=== PATIENT | female | born 1965 | race Caucasian/White ===

== ENCOUNTER 2019-12-22 15:35 | Inpatient (IN) | payer MEDICARE ==
[2019-12-22] MEDS ORDERED: Clindamycin/D5W 900 mg/50 ml Premix Bag ONE (16:28)
[2019-12-22] MEDS ORDERED: Fentanyl 100 MCG/2 ML VIAL ONE (16:28)
[2019-12-22] MEDS ORDERED: Ondansetron PF 4 MG/2 ML Vial ONE (16:28)
[2019-12-22] MEDS ORDERED: Lorazepam 2 MG/ML VIAL ONE (16:29)
[2019-12-22 16:49] LABS: #Basophils 0.1 thou/uL (0.0-0.2); #Eosinphils 0.1 thou/uL (0.0-0.7); #Lymphocytes 1.7 thou/uL (1.20-3.40); #Monocytes 0.2 thou/uL (0.11-0.59); #Neutrophils 3.8 thou/uL (1.40-6.50); %Eosinophils 2.3 % (0.0-10.0); %Lymphocytes 28.4 % (21.0-51.0); %Monocytes 3.7 % (0.0-10.0); %Neutrophils 64.6 % (42.0-75.0); Hemoglobin 13.7 g/dL (12.0-16.0); Mean Corpuscular HGB CONC 32.6 g/dL (32.0-36.0); Mean Corpuscular Hemoglobin 26.2 pg (27.0-31.0); Mean Corpuscular Volume 80.6 fL (78.0-98.0); Mean Platelet Volume 8.8 fL (7.4-10.4); Platelet Count 201 thou/uL (130-400); RBC Distribution Width 13.9 % (11.5-14.5); Red Blood Cell (RBC) Count 5.22 mill/uL (4.20-5.40); White Blood Cell (WBC) Count 5.9 thou/uL (4.8-10.8)
[2019-12-22] MEDS ORDERED: Lidocaine 1% w/Epinephrine 1:100K 20 ML VIAL ONE (16:51)
[2019-12-22 17:13] LABS: ALT (SGPT) Less than 7 U/L (8-55); AST (SGOT) 13 U/L (5-34); Albumin 4.3 g/dL (3.5-5.0); Alkaline Phosphatase 164 U/L (40-110); Anion Gap 15 mmol/L (10-20); BUN (Urea Nitrogen) 12 mg/dL (9.8-20.1); Bilirubin, Total 0.3 mg/dL (0.2-1.2); Calc. Creatinine Clearance 0 mL/min (70-130); Carbon Dioxide 24 mmol/L (22-29); Chloride 99 mmol/L (98-107); Estimated GFR-MDRD 47; Globulin 3.5 g/dL (2.4-3.5); Glucose 443 mg/dL (70-105); Potassium 4.2 mmol/L (3.5-5.1); Protein, Total 7.8 g/dL (6.0-8.3); Sodium 134 mmol/L (136-145)
[2019-12-22] MEDS ORDERED: HYDROcodone/Acetaminophen 5/325 mg Tablet PO PRN (19:27)
[2019-12-22] MEDS ORDERED: Acetaminophen 325 MG TAB PO PRN (19:35)
[2019-12-22] MEDS ORDERED: Senokot S 8.6-50 MG TAB PO PRN (19:35)
[2019-12-22] MEDS ORDERED: Ondansetron PF 4 MG/2 ML Vial IVP PRN (19:35)
[2019-12-22] MEDS ORDERED: Ondansetron ODT 4 MG TAB PO PRN (19:35)
[2019-12-22] MEDS ORDERED: Dextrose 5% in Water 1,000 ML IV PRN (19:37)
[2019-12-22] MEDS ORDERED: Dextrose 50% Abboject 50 ML SYRINGE SLOW IVP PRN (19:37)
[2019-12-22 19:41] LABS: Hemoglobin A1c Greater than 14.0 % (4.0-6.0)
[2019-12-22] MEDS ORDERED: Sodium Chloride 0.9% 1,000 ML IV SCH (19:45)
--- NOTE | 2019-12-22 20:09 | HP ---
PRIMARY CARE PHYSICIAN: Dr. Dc. CHIEF COMPLAINT: Patient was referred by her primary care physician for the perirectal abscess, failed outpatient therapy. HISTORY OF PRESENT ILLNESS: Patient is a 54-year-old a white female with diabetes mellitus, type 2, presented to the emergency room with above complaints. Over the last 1 week, patient noticed an abscess in the perineal area that progressively got worse. She also had significant pain 10/10, worse with movement. She felt feverish without any chills. No vaginal discharge, nausea, vomiting, or diarrhea reported. She was started on doxycycline and Bactrim last week. The patient went for reevaluation today to her primary care physician who referred the patient to the emergency room due to worsening abscess. There was also some drainage, which was bloody over the last 1 to 2 days. PAST MEDICAL HISTORY: 1. Diabetes mellitus, type 2. 2. Hypothyroidism. 3. Bipolar disorder. PAST SURGICAL HISTORY: 1. Carpal tunnel surgery. 2. Hysterectomy. 3. Right knee surgery. ALLERGIES: PATIENT IS ALLERGIC TO DARVOCET. CURRENT HOME MEDICATION: 1. Levothyroxine 175 mcg daily. 2. Metformin twice a day. 3. Doxycycline and Bactrim since one week. The dosages to be confirmed. SOCIAL HISTORY: Patient currently lives at home with her family. No alcohol, tobacco, or drug use reported. FAMILY HISTORY: Mother with breast cancer. Diabetes runs in her family. REVIEW OF SYSTEMS: All other review of systems was reviewed and was found negative. PHYSICAL EXAMINATION: VITAL SIGNS: Temperature 98.7, respirations of 16, pulse of 95, blood pressure of 138/65, and O2 saturation 95% on room air. GENERAL: A 54-year-old female, in no apparent distress. Pain improved after incision and drainage in the emergency room. HEENT: Head, atraumatic and normocephalic. Sclerae anicteric. Moist mucous membranes. No oral lesion. NECK: Supple. No JVD appreciated. No carotid bruit. LUNGS: Clear to auscultation bilaterally. No wheezing, rales, or rhonchi. HEART: S1 and S2 present. Regular rate and rhythm. No rubs or gallops. ABDOMEN: Soft, nontender. Bowel sounds present. EXTREMITIES: No edema or calf tenderness. NEUROLOGIC: Grossly nonfocal. Moves all 4 extremities. PSYCHIATRY: Alert, awake, and oriented x3. SKIN: Warm and dry. LYMPH NODES: No palpable lymph nodes in the neck. PERIPHERAL VASCULAR: Radial pulses palpable bilaterally. MUSCULOSKELETAL: No joint swelling or tenderness. LABORATORY FINDINGS: CBC showed WBC 5.9 with hemoglobin 13.7, hematocrit 42, and platelet 201. Chemistry showed sodium 134, potassium 4.2, chloride 99, bicarb 24, BUN 12, creatinine 1.2, glucose of 443, and alkaline phosphatase 164. Total bilirubin and AST normal range. Telemetry monitoring by my review showed sinus rhythm. IMPRESSION: 1. Perirectal abscess, status post incision and drainage in the emergency room, failed outpatient therapy. 2. Hypothyroidism. 3. Diabetes mellitus, type 2. 4. Bipolar disorder. 5. Hyponatremia. 6. Chronic kidney disease, stage 3. PLAN: Patient will be monitored in the medical floor as observation. General Surgery will be consulted. Consult Wound Care. We will start vancomycin and ceftriaxone. Resume levothyroxine. Hold metformin for now. Pain control. Recheck labs in the a.m. N.p.o. past midnight. Job ID: [id number] MTDD
[2019-12-22 21:44] VITALS: BMI 29.5
[2019-12-22] MEDS ORDERED: cefTRIAXone\\ROCEPHIN 2 GM in Sodium Chloride 0.9% 100 ML IVPB SCH (22:30)
[2019-12-22] MEDS ORDERED: Vancomycin 1.5 GRAM/300 ML BAG 1.5 GM in Premix Bag 1 BAG IVPB SCH (23:00)
[2019-12-22] MEDS: Sodium Chloride 0.9% 1,000 ML IV SCH (23:14)
[2019-12-23] MEDS: Insulin Glargine 10 UNITS in Pre-Filled Syringe 1 EACH SC SCH ×2 (00:08→20:53)
[2019-12-23] MEDS: Morphine 2 MG/ML SYRINGE SLOW IVP PRN ×3 (01:16→18:44)
--- NOTE | 2019-12-23 01:37 | PDOC.EVN ---
Event Note - Event Note Event Note: Notified by RN, patient refusing sliding scale due to fear of needles. Glucose was 393, slight improvement from previous. She had regular diet in ED including brownie. Patient for surgery in AM, metformin on hold. Continue to monitor glucose as ordered. Glucotrol ordered for AM.
[2019-12-23] MEDS: Sodium Chloride 0.9% 1,000 ML IV SCH ×4 (04:00→21:02)
[2019-12-23 06:16] LABS: #Eosinphils 0.1 thou/uL (0.0-0.7); #Lymphocytes 1.7 thou/uL (1.20-3.40); #Monocytes 0.3 thou/uL (0.11-0.59); #Neutrophils 2.3 thou/uL (1.40-6.50); %Basophils 0.5 % (0.0-1.0); %Lymphocytes 37.6 % (21.0-51.0); %Monocytes 6.7 % (0.0-10.0); %Neutrophils 52.1 % (42.0-75.0); Hemoglobin 10.7 g/dL (12.0-16.0); Mean Corpuscular HGB CONC 31.2 g/dL (32.0-36.0); Mean Corpuscular Hemoglobin 25.2 pg (27.0-31.0); Mean Platelet Volume 8.7 fL (7.4-10.4); Platelet Count 162 thou/uL (130-400); RBC Distribution Width 13.8 % (11.5-14.5); Red Blood Cell (RBC) Count 4.22 mill/uL (4.20-5.40); White Blood Cell (WBC) Count 4.5 thou/uL (4.8-10.8)
[2019-12-23] MEDS: Levothyroxine 175 MCG TAB PO SCH (06:26)
[2019-12-23 06:44] LABS: ALT (SGPT) Less than 7 U/L (8-55); AST (SGOT) 10 U/L (5-34); Albumin 3.2 g/dL (3.5-5.0); Alkaline Phosphatase 118 U/L (40-110); Anion Gap 11 mmol/L (10-20); BUN (Urea Nitrogen) 9 mg/dL (9.8-20.1); Bilirubin, Total 0.2 mg/dL (0.2-1.2); Calc. Creatinine Clearance 98 mL/min (70-130); Calcium 8.3 mg/dL (7.8-10.44); Carbon Dioxide 22 mmol/L (22-29); Chloride 106 mmol/L (98-107); Estimated GFR-MDRD 72; Globulin 2.7 g/dL (2.4-3.5); Glucose 357 mg/dL (70-105); Potassium 4.3 mmol/L (3.5-5.1); Protein, Total 5.9 g/dL (6.0-8.3); Sodium 135 mmol/L (136-145)
[2019-12-23] MEDS: Saccharomyces boulardii 250 MG CAP PO SCH (07:45)
[2019-12-23] MEDS: glipiZIDE 5 MG TAB PO SCH ×2 (07:45→17:04)
[2019-12-23] MEDS ORDERED: Insulin Glargine 10 UNITS in Pre-Filled Syringe 1 EACH SC SCH (09:00)
[2019-12-23] MEDS: Insulin Regular 300 UNITS/3 ML VIAL SC PRN ×4 (09:56→21:01)
[2019-12-23] MEDS: Vancomycin HCl 750 MG in Sodium Chloride 0.9% 250 ML 250 ML IVPB SCH ×2 (09:56→21:56)
[2019-12-23] MEDS ORDERED: Fentanyl 100 MCG/2 ML VIAL ONE (10:56)
[2019-12-23] MEDS ORDERED: Lidocaine 1% w/Epinephrine 1:100K 20 ML VIAL ONE (11:06)
[2019-12-23] MEDS ORDERED: Bupivacaine PF 0.5% 30 ML VIAL ONE (11:06)
[2019-12-23] MEDS ORDERED: Lidocaine 2% Jelly 5 ML TUBE ONE (11:06)
[2019-12-23] MEDS ORDERED: Lidocaine 1% PF 5 ML VIAL ONE (11:57)
[2019-12-23] MEDS ORDERED: Glycopyrrolate 0.2 MG/ML 5 ML SYRINGE ONE (11:57)
[2019-12-23] MEDS ORDERED: Rocuronium Bromide 10 MG/ML (10ML VIAL) ONE (11:57)
[2019-12-23] MEDS ORDERED: Ondansetron PF 4 MG/2 ML Vial ONE (11:57)
[2019-12-23] MEDS ORDERED: PROPOFOL 200 MG/20 ML VIAL ONE (11:57)
[2019-12-23] MEDS ORDERED: Dexamethasone 20 MG/5 ML VIAL ONE (11:57)
[2019-12-23] MEDS ORDERED: Promethazine HCl 25 MG/ML VIAL SLOW IVP PRN (12:25)
[2019-12-23] MEDS ORDERED: Morphine Sulfate 2 MG/ML SYRINGE SLOW IVP PRN (12:25)
[2019-12-23] MEDS ORDERED: HYDROmorphone 2 MG/ML VIAL SLOW IVP PRN (12:25)
[2019-12-23] MEDS ORDERED: Ondansetron HCl/PF 4 MG/2 ML Vial IVP PRN (12:25)
[2019-12-23] MEDS ORDERED: PACU-Morphine 4MG/ML VIAL SLOW IVP PRN (12:25)
[2019-12-23] MEDS ORDERED: Promethazine HCl 25 MG/ML VIAL IM PRN (12:25)
[2019-12-23] MEDS ORDERED: Meperidine HCl/PF 25 MG/ML VIAL SLOW IVP PRN (12:25)
--- NOTE | 2019-12-23 13:41 | OP ---
DATE OF PROCEDURE: 12/23/2019 PREOPERATIVE DIAGNOSIS: Right perirectal abscess. POSTOPERATIVE DIAGNOSIS: Right perirectal abscess, likely secondary to an insect bite. PROCEDURE PERFORMED: Incision and drainage of right perirectal abscess. ANESTHESIA: General endotracheal. ESTIMATED BLOOD LOSS: Negligible. COUNTS: Sponge and instrument counts were verified as correct x2. COMPLICATIONS: None apparent at the time of operation. INDICATIONS FOR OPERATION: This is a 54-year-old poorly-controlled diabetic, who presented with a perirectal abscess, which was incised and drained in the emergency department yesterday. The patient was referred to General Surgery due to worsening induration with the abscess associated with significant pain. The patient was brought to the operating room today for incision and drainage. Findings are consistent with necrosis of the skin and subcutaneous fat, associated with the perirectal abscess, likely secondary to insect bite. DESCRIPTION OF PROCEDURE: Informed consent was obtained from the patient. The patient was brought to the operating room and placed in supine position. Following general anesthesia, the patient was placed in the lithotomy position. The wound was sterilely prepped and draped in the usual fashion. Inspection revealed necrosis of the surrounding skin and subcutaneous fat associated with this perirectal abscess. This was circumferentially incised using Metzenbaum scissors, passed off the operative field for microbiology and pathology. The wound bed was then copiously irrigated with saline. Hemostasis was achieved using cautery. Wound was packed with a wet-to-dry sterile gauze. Mesh pants were reapplied. The patient tolerated the procedure without any apparent complication and was returned to recovery room in satisfactory condition. Job ID: [id number]
[2019-12-23] MEDS: cefTRIAXone\\ROCEPHIN 2 GM in Sodium Chloride 0.9% 100 ML IVPB SCH (20:47)
[2019-12-23] MEDS: HYDROcodone/Acetaminophen 5/325 mg Tablet PO PRN (21:08)
--- NOTE | 2019-12-23 23:35 | PDOC.HOSPP ---
- Subjective Encounter Date: 12/23/19 Encounter Time: 16:00 Subjective: Patient seen and examined for Perirectal abscess. No fever. Pain controlled. Refusing Insulin. No new complaints. No overnight events - Objective Vital Signs & Weight: Vital Signs (12 hours) Temp Pulse Resp BP BP Pulse Ox 12/23/19 23:32 97.9 F 73 18 117/79 98 12/23/19 19:13 97.8 F 78 16 124/78 95 12/23/19 17:03 97.8 F 70 18 114/76 93 L 12/23/19 13:00 97.8 F 63 18 117/59 L 93 L Weight Admit Weight 177 lb 4 oz Weight 177 lb 4 oz I&O: 12/22/19 12/23/19 12/24/19 06:59 06:59 06:59 Intake Total 1144 Balance 1144 Result Diagrams: 12/23/19 05:28 12/23/19 05:28 Additional Labs: Accuchecks 12/23/19 12/23/19 12/23/19 20:17 16:48 13:10 POC Glucose 448 H 341 H 266 H 12/23/19 12/23/19 12/23/19 09:34 03:57 00:30 POC Glucose 319 H 428 H 363 H Hospitalist ROS - Review of Systems Respiratory: denies: cough, dry, shortness of breath, hemoptysis, SOB with excertion, pleuritic pain, sputum, wheezing, other Cardiovascular: denies: chest pain, palpitations, orthopnea, paroxysmal noc. dyspnea, edema, light headedness, other - Medication Medications: Active Medications Generic Name Dose Route Start Last Admin Trade Name Freq PRN Reason Stop Dose Admin Hydrocodone Bitart/Acetaminophen 2 tab 12/22/19 19:35 12/23/19 21:08 [place] 5/325 PO 2 tab Q4H PRN Administration Severe Pain (7-10) Glipizide 5 mg 12/23/19 07:30 12/23/19 17:04 Glucotrol PO 5 mg BID-AC PLACIDO Administration Ceftriaxone Sodium 2 gm/ 100 mls @ 200 mls/hr 12/23/19 21:00 12/23/19 20:47 Sodium Chloride IVPB 100 mls Q24HR PLACIDO Administration Sodium Chloride 1,000 mls @ 125 mls/hr 12/22/19 19:48 12/23/19 21:02 Normal Saline 0.9% IV Not Given .Q8H PLACIDO Insulin Glargine 10 units/ 0.1 mls @ 0 mls/hr 12/22/19 21:00 12/23/19 20:53 Miscellaneous Medication SC 0.1 mls HS PLACIDO Administration Insulin Glargine 10 units/ 0.1 mls @ 0 mls/hr 12/23/19 09:00 12/23/19 06:26 Miscellaneous Medication SC 0.1 mls QAM PLACIDO Administration Vancomycin HCl 750 mg/ Sodium 250 mls @ 250 mls/hr 12/23/19 10:00 12/23/19 21 :56 Chloride IVPB 250 mls 1000,2200 PLACIDO Administration Insulin Human Regular 0 units 12/22/19 19:37 12/23/19 17:04 Humulin R SC 8 unit .MODERATE SLIDING SC PRN Administration Moderate Correctional Scale Insulin Human Regular 0 units 12/22/19 19:37 12/23/19 21:01 Humulin R SC 5 unit .BEDTIME SLIDING SC PRN Administration Bedtime Correctional Scale Levothyroxine Sodium 175 mcg 12/23/19 06:00 12/23/19 06:26 Synthroid PO 175 mcg 0600 PLACIDO Administration Morphine Sulfate 2 mg 12/22/19 19:27 12/23/19 18:44 Morphine SLOW IVP 12/24/19 19:28 2 mg Q4H PRN Administration Pain Saccharomyces Boulardii 250 mg 12/23/19 09:00 12/23/19 07:45 Florastor PO Not Given DAILY PLACIDO - Exam General Appearance: NAD Neck: no JVD Heart: RRR, no gallops, no rubs, normal peripheral pulses Respiratory: no wheezes, no rales, no ronchi Gastrointestinal: soft, non-tender, non-distended, normal bowel sounds Extremities: no cyanosis, no clubbing Neurological: no new deficit Psychiatric: normal affect, A&O x 3 Hosp A/P - Plan DVT proph w/SCDs Perirectal abscess s/p I&D Hypothyroidism. Diabetes mellitus, type 2. Bipolar disorder. Hyponatremia. CKD 3. PLAN: Cont IV Vancomycin/Ceftriaxone Monitor Vancomycin level Cont Levothyroxine. Start Lantus Cont Glipizide Await cultures Surg input appreciated Microbiology 12/23/19 12:00 Perirectal - Abscess Bacterial Culture - Preliminary 12/23/19 12:00 Perirectal - Abscess Streptococcus agalactiae Gp. B Laboratory Tests 12/22/19 16:37 Hemoglobin A1c Greater than 14.0 H
[2019-12-23] MEDS ORDERED: Insulin Glargine 15 UNITS in Pre-Filled Syringe 1 EACH SC SCH (23:59)
--- NOTE | 2019-12-24 00:13 | PRG ---
DATE OF SERVICE: 12/23/2019 SUBJECTIVE: The patient is currently on the surgical floor. She is status post incision and drainage of a right perirectal abscess today. She reports that her pain is controlled. She is tolerating a diet. PHYSICAL EXAMINATION: VITAL SIGNS: The patient is afebrile. Vital signs are stable. GENERAL: She is resting comfortably in bed. She appears in no distress. Nurses report that her dressing has not been changed yet. Plan was for it to be changed tomorrow and it is currently a wet-to-dry dressing. ASSESSMENT: Status post irrigation and debridement of perirectal abscess. PLAN: Will be to continue supportive care, wound care, and antibiotics per primary team. Job ID: [id number]
[2019-12-24] MEDS: Morphine 2 MG/ML SYRINGE SLOW IVP PRN ×2 (03:52→10:24)
[2019-12-24] MEDS: Sodium Chloride 0.9% 1,000 ML IV SCH ×3 (03:52→21:58)
[2019-12-24] MEDS: Levothyroxine 175 MCG TAB PO SCH (05:29)
[2019-12-24] MEDS: Insulin Regular 300 UNITS/3 ML VIAL SC PRN ×3 (05:29→21:44)
[2019-12-24] MEDS: Saccharomyces boulardii 250 MG CAP PO SCH (09:23)
[2019-12-24] MEDS: glipiZIDE 5 MG TAB PO SCH ×2 (09:23→16:58)
[2019-12-24] MEDS: Polyethylene Glycol 3350 17 GM Packet PO SCH (09:24)
[2019-12-24] MEDS: Vancomycin HCl 750 MG in Sodium Chloride 0.9% 250 ML 250 ML IVPB SCH (09:25)
[2019-12-24] MEDS: Insulin Glargine 20 UNITS in Pre-Filled Syringe 1 EACH SC SCH ×2 (09:28→21:43)
[2019-12-24] MEDS: HYDROcodone/Acetaminophen 5/325 mg Tablet PO PRN ×2 (11:31→16:55)
[2019-12-24 21:22] LABS: Vancomycin, Trough 8.4 ug/mL
[2019-12-24] MEDS ORDERED: Insulin Regular 300 UNITS/3 ML VIAL SC PRN (21:35)
--- NOTE | 2019-12-24 21:38 | PDOC.HOSPP ---
- Subjective Encounter Date: 12/24/19 Encounter Time: 16:30 Subjective: Patient seen and examined for Perirectal abscess. Pain control. No new complaints. No overnight events - Objective Vital Signs & Weight: Vital Signs (12 hours) Temp Pulse Resp BP Pulse Ox 12/24/19 21:01 97.8 F 70 20 126/80 97 12/24/19 16:55 97.8 F 69 18 130/80 97 12/24/19 11:52 97.5 F L 74 18 129/79 98 Weight Admit Weight 177 lb 4 oz Weight 177 lb 4 oz I&O: 12/23/19 12/24/19 12/25/19 06:59 06:59 06:59 Intake Total 3244 Balance 3244 Result Diagrams: 12/23/19 05:28 12/23/19 05:28 Additional Labs: Accuchecks 12/24/19 12/24/19 12/24/19 21:01 16:43 11:40 POC Glucose 160 H 168 H 246 H 12/24/19 12/23/19 03:35 23:40 POC Glucose 264 H 326 H Hospitalist ROS - Review of Systems Cardiovascular: denies: chest pain, palpitations, orthopnea, paroxysmal noc. dyspnea, edema, light headedness, other Gastrointestinal: denies: nausea, vomiting, abdominal pain, diarrhea, constipation, melena, hematochezia, other - Medication Medications: Active Medications Generic Name Dose Route Start Last Admin Trade Name Freq PRN Reason Stop Dose Admin Hydrocodone Bitart/Acetaminophen 2 tab 12/22/19 19:35 12/24/19 16:55 [place] 5/325 PO 2 tab Q4H PRN Administration Severe Pain (7-10) Glipizide 5 mg 12/23/19 07:30 12/24/19 16:58 Glucotrol PO 5 mg BID-AC PLACIDO Administration Ceftriaxone Sodium 2 gm/ 100 mls @ 200 mls/hr 12/23/19 21:00 12/23/19 20:47 Sodium Chloride IVPB 100 mls Q24HR PLACIDO Administration Insulin Glargine 20 units/ 0.2 mls @ 0 mls/hr 12/24/19 09:00 12/24/19 09:28 Miscellaneous Medication SC 0.2 mls BID PLACIDO Administration Insulin Human Regular 0 units 12/22/19 19:37 12/23/19 21:01 Humulin R SC 5 unit .BEDTIME SLIDING SC PRN Administration Bedtime Correctional Scale Levothyroxine Sodium 175 mcg 12/23/19 06:00 12/24/19 05:29 Synthroid PO 175 mcg 0600 PLACIDO Administration Polyethylene Glycol 17 gm 12/24/19 09:00 12/24/19 09:24 Miralax PO Not Given DAILY PLACIDO Saccharomyces Boulardii 250 mg 12/23/19 09:00 12/24/19 09:23 Florastor PO 250 mg DAILY PLACIDO Administration - Exam General Appearance: NAD Heart: RRR, no gallops Respiratory: CTAB, no rales Gastrointestinal: non-tender, non-distended, normal bowel sounds Extremities: no cyanosis Hosp A/P - Plan DVT proph w/SCDs Perirectal abscess s/p I&D Hypothyroidism. Diabetes mellitus, type 2 - uncontrolled Bipolar disorder. Hyponatremia. BLOSSOM on CKD 2. PLAN: Cont IV Atbx - Vancomycin/Ceftriaxone Monitor Vancomycin level Increase Lantus dose Cont sliding scale Cont Glipizide Await cultures Cont wound care DC in 24 hr if stable Microbiology 12/23/19 12:00 Perirectal - Abscess Bacterial Culture - Preliminary 12/23/19 12:00 Perirectal - Abscess Streptococcus agalactiae Gp. B
[2019-12-24] MEDS: cefTRIAXone\\ROCEPHIN 2 GM in Sodium Chloride 0.9% 100 ML IVPB SCH (21:43)
[2019-12-24] MEDS: Vancomycin HCl 1.25 GM in Sodium Chloride 0.9% 250 ML 250 ML IVPB SCH (22:47)
[2019-12-25] MEDS: Levothyroxine 175 MCG TAB PO SCH (05:24)
[2019-12-25 08:05] VITALS: BP 132/74; TEMP 97.5
[2019-12-25] MEDS ORDERED: Enoxaparin Sodium 40 MG/0.4 ML SYRINGE SC SCH (09:00)
[2019-12-25] MEDS: HYDROcodone/Acetaminophen 5/325 mg Tablet PO PRN (09:15)
[2019-12-25] MEDS: glipiZIDE 5 MG TAB PO SCH (09:17)
[2019-12-25] MEDS: Saccharomyces boulardii 250 MG CAP PO SCH (09:17)
[2019-12-25] MEDS: Polyethylene Glycol 3350 17 GM Packet PO SCH (09:17)
[2019-12-25] MEDS: Insulin Glargine 20 UNITS in Pre-Filled Syringe 1 EACH SC SCH (09:18)
[2019-12-25] MEDS: Vancomycin HCl 1.25 GM in Sodium Chloride 0.9% 250 ML 250 ML IVPB SCH (11:22)
--- NOTE | 2019-12-25 13:50 | DIS ---
DATE OF ADMISSION: 12/22/2019 DATE OF DISCHARGE: 12/25/2019 PRIMARY CARE PROVIDER: Giancarlo Dc. DISPOSITION: Discharged to home. FINAL DIAGNOSES: 1. Perirectal abscess. 2. Type 2 diabetes mellitus, uncontrolled. 3. Hypothyroidism. 4. B12 deficiency. ALLERGIES: DARVON. CODE STATUS: Full. PENDING AT TIME OF DISCHARGE: Nothing. DIET: Diabetic. MEDICINES: At discharge; 1. Cephalexin 250 mg p.o. q.i.d. for 7 days. 2. Insulin glargine 20 units subcu twice a day. 3. Metformin 500 mg p.o. q.i.d. 4. Levothyroxine 175 mcg a day. HOSPITAL COURSE: The patient was admitted to the Hospitalist Service through [facility] for perirectal abscess, failed outpatient therapy. Dr. Fareed Schreiber, was consulted. The patient went to the operating room on 12/23/2019. Incision and drainage of right perirectal abscess were done. Past specimen was read out as soft tissue abscess. Initial laboratory; white count 5.9, hemoglobin 13.7, and platelet count 201,000. Comprehensive metabolic profile; blood sugar 443, creatinine 1.2, and sodium 134. Her hemoglobin A1c was greater than 14. Insulin glargine was added. Accu-Chek sliding scale were continued. Her creatinine came down to normal 0.82. Her abscess culture grew Streptococcus agalactiae. She has done well during her hospital stay. She is to be seen in followup by Dr. Dc in 3 days. She has received instruction on insulin injections. She has received instruction on wound care and sitz baths. All questions were answered. Prescriptions were written. Job ID: [id number]
--- NOTE | 2019-12-28 06:25 | PQF ---
YANET MIMS, [place] Ethan STEVEN [id number] -A- [id number] CLINICAL DOCUMENTATION CLARIFICATION FORM: POST DISCHARGE Addendum to original discharge summary date: ____ Late entry note date: __ DATE:12/28/2019 ATTN: Dr Boo, [place] Please exercise your independent, professional judgment in responding to the clarification form. Clinical indicators are provided on the bottom of this form for your review In your clinical opinion based on clinical findings below, can you please further specify Perirectal abscess if: Please check appropriate box(s): [ ] Subcutaneous perineal abscess [ ] Rectal Abscess [ x ] Other diagnosis request info from surgeon Also please further clarify the etilogy of Abscess if due to: Please check appropriate box(s): [ ] DM type2 [ ] Insect Bite [ ] Other diagnosis For continuity of documentation, please document condition throughout progress notes and discharge summary. Thank You. CLINICAL INDICATORS - SIGNS / SYMPTOMS / LABS Laboratory 12/21 Poc Glucose 419; 363; 428; 319; 266; 341; 448 Microbiology 12/22 Perirectal abscess positive with Strep Group B ED Notes p3 12/21 large right perirectal abscess H&P p1 12/21 Dr Thomas Over the last 1 week, pt noticed an abscess in the perineal area that progressively got worse. She also had significant pain 07/29. Operative report p1 12/22 Dr Schreiber Right perirectal abscess, likely secondary to an insect bite Operative report p1 12/22 Dr Schreiber Inspection revealed necrosis of the surrounding skin and subcutaneous fat associated with perirectal abscess Pathology report p1 12/22 specimen consists of an irregular ozuna soft tissue measuring 2.2 x 1.8 x1.5 cm greatest dimensions RISK FACTORS H&P p1 03/ DM type 2, poorly controlled H&P p1 12/21 Hypothyroidism H&P p2 12/21 Perirectal abscess, failed outpatient therapy H&P p3 12/21 Hyponatremia H&P p3 12/21 CKD 3 TREATMENTS: DEC 20 [place] 5/325 1tab po DEC 20 IV Ceftriaxone Sodium 2gm DEC 20 Insulin 10units subq DEC 20 IV Morphine 4mg DEC 20 IVF NS 1L DEC 20 IV Morphine 1.5 DEC 20 Glucotrol 5mg po I&D 12/21 done in ED I&D 12/[address] Candie ABURTO 12/24 Wound culture (This form is maintained as a part of the permanent medical record) 2014 [employer], [employer]. All Rights Reserved [email or web address]
--- NOTE | 2019-12-28 19:38 | PQF ---
YANET MIMS VINCENT MD [id number] [id number] CLINICAL DOCUMENTATION CLARIFICATION FORM: POST DISCHARGE Addendum to original discharge summary date: ____ Late entry note date: __ DATE:12/28/2019 ATTN: Fareed Mtz Please exercise your independent, professional judgment in responding to the clarification form. Clinical indicators are provided on the bottom of this form for your review In your clinical opinion based on clinical findings below, can you please further specify Perirectal abscess if: Please check appropriate box(s): [ x ] Subcutaneous perineal abscess [ ] Rectal Abscess [ ] Other diagnosis Also please further clarify the etiology of Abscess if due to: Please check appropriate box(s): [ x ] DM type2 [ x ] Insect Bite [ ] Other diagnosis For continuity of documentation, please document condition throughout progress notes and discharge summary. Thank You. CLINICAL INDICATORS - SIGNS / SYMPTOMS / LABS Laboratory 12/21 Poc Glucose 419; 363; 428; 319; 266; 341; 448 Microbiology 12/22 Perirectal abscess positive with Strep Group B ED Notes p3 12/21 large right perirectal abscess H&P p1 12/21 Dr Thomas Over the last 1 week, pt noticed an abscess in the perineal area that progressively got worse. She also had significant pain 07/29. Operative report p1 12/22 Dr Schreiber Right perirectal abscess, likely secondary to an insect bite Operative report p1 12/22 Dr Schreiber Inspection revealed necrosis of the surrounding skin and subcutaneous fat associated with perirectal abscess Pathology report p1 12/22 specimen consists of an irregular ozuna soft tissue measuring 2.2 x 1.8 x1.5 cm greatest dimensions RISK FACTORS H&P p1 03/ DM type 2, poorly controlled H&P p1 12/21 Hypothyroidism H&P p2 12/21 Perirectal abscess, failed outpatient therapy H&P p3 12/21 Hyponatremia H&P p3 12/21 CKD 3 TREATMENTS: DEC 20 [place] 5/325 1tab po DEC 20 IV Ceftriaxone Sodium 2gm DEC 20 Insulin 10units subq DEC 20 IV Morphine 4mg DEC 20 IVF NS 1L DEC 20 IV Morphine 1.5 DEC 20 Glucotrol 5mg po I&D 12/21 done in ED I&D 12/[address] Candie ABURTO 12/24 Wound culture (This form is maintained as a part of the permanent medical record) 2014 [employer], [employer]. All Rights Reserved [email or web address]
== END 2019-12-25 14:40 | disposition home or self-care (01) | DRG 580 ==
LOC: ERS 15:35 → OBSVTOIN 17:32 → T4-A 17:32
PROVIDERS: ADMIT Internal Medicine; ATTEND Internal Medicine
PROC: 0H99XZZ Drainage of Perineum Skin, External Approach (ICD-10-PCS; 2019-12-22)
PROC: 0J9B0ZZ Drainage of Perineum Subcutaneous Tissue and Fascia, Open Approach (ICD-10-PCS; principal; 2019-12-23)
DX: L02.215 Cutaneous abscess of perineum (principal); E87.1 Hypo-osmolality and hyponatremia; E11.628 Type 2 diabetes mellitus with other skin complications; E11.65 Type 2 diabetes mellitus with hyperglycemia; E03.9 Hypothyroidism, unspecified; E53.8 Deficiency of other specified B group vitamins; F31.9 Bipolar disorder, unspecified; E11.22 Type 2 diabetes mellitus with diabetic chronic kidney disease; N18.3 Chronic kidney disease, stage 3 (moderate); B95.4 Other streptococcus as the cause of diseases classified elsewhere; S30.864A Insect bite (nonvenomous) of vagina and vulva, initial encounter; W57.XXXA Bitten or stung by nonvenomous insect and other nonvenomous arthropods, initial encounter; Z88.6 Allergy status to analgesic agent; Z79.890 Hormone replacement therapy; Z90.710 Acquired absence of both cervix and uterus; Z79.84 Long term (current) use of oral hypoglycemic drugs
CPT/HCPCS: 36415; 36416; 46040; 80053; 80202; 83036; 85025; 87070; 87076; 87077; 87205; 88304; 96361; 96365; 96375; J0696; J1100; J1815; J2001; J2060; J2270; J2405; J2704; J3010; J3370; J3490; J7050; S0020

== ENCOUNTER 2022-09-22 02:08 | Inpatient (IN) | payer MEDICARE, OTHER ==
[2022-09-22 05:22] VITALS: BMI 28.8
[2022-09-22] MEDS ORDERED: Dextrose 50% Abboject 50 ML SYRINGE SLOW IVP PRN (06:03)
[2022-09-22] MEDS ORDERED: Ondansetron PF 4 MG/2 ML Vial IVP PRN (06:03)
[2022-09-22] MEDS ORDERED: Ondansetron ODT 4 MG TAB PO PRN (06:03)
[2022-09-22] MEDS ORDERED: Acetaminophen 650 MG Suppository PR PRN (06:03)
[2022-09-22] MEDS ORDERED: HumaLOG 300 UNITS/3 ML VIAL SC PRN (06:03)
[2022-09-22] MEDS ORDERED: Dextrose 5% in Water 1,000 ML IV PRN (06:03)
[2022-09-22] MEDS ORDERED: Piperacillin/Tazobactam 3.375 GM in Sodium Chloride 0.9% 100 ML IVPB SCH ×2 (06:15→06:30)
[2022-09-22] MEDS ORDERED: Sodium Chloride 0.9% 1,000 ML IV SCH (06:30)
[2022-09-22] MEDS: HumaLOG 300 UNITS/3 ML VIAL SC PRN ×2 (06:34→17:06)
[2022-09-22 07:02] LABS: SARS-CoV-2 NAA Rapid Test Not Detected (NotDetected)
[2022-09-22] MEDS: Acetaminophen 325 MG TAB PO PRN ×2 (07:04→12:04)
[2022-09-22] MEDS ORDERED: Morphine 4 MG/ML VIAL SLOW IVP PRN (07:11)
[2022-09-22] MEDS ORDERED: ALPRAZolam 0.25 MG TAB PO PRN (08:19)
[2022-09-22] MEDS ORDERED: FLU VACC QS2022-23(6MOS UP)/PF 60 MCG/0.5 ML SYRINGE IM ONE (09:00)
[2022-09-22 11:46] LABS: #Lymphocytes 0.5 thou/uL (1.20-3.40); #Monocytes 0.3 thou/uL (0.11-0.59); #Neutrophils 2.1 thou/uL (1.40-6.50); %Basophils 0.9 % (0.0-1.0); %Eosinophils 1.4 % (0.0-10.0); %Lymphocytes 15.6 % (21.0-51.0); %Monocytes 10.7 % (0.0-10.0); %Neutrophils 71.4 % (42.0-75.0); Hemoglobin 10.4 g/dL (12.0-16.0); Mean Corpuscular HGB CONC 30.3 g/dL (32.0-36.0); Mean Corpuscular Hemoglobin 23.2 pg (27.0-31.0); Mean Corpuscular Volume 76.7 fl (78.0-98.0); RBC Distribution Width 16.9 % (11.5-14.5); Red Blood Cell (RBC) Count 4.49 mill/uL (4.20-5.40)
[2022-09-22] MEDS: Piperacillin/Tazobactam 3.375 GM in Sodium Chloride 0.9% 100 ML IVPB SCH ×2 (11:57→19:49)
[2022-09-22 12:01] LABS: ALT (SGPT) 60 U/L (8-55); AST (SGOT) 68 U/L (5-34); Albumin 3.7 g/dL (3.5-5.0); Alkaline Phosphatase 268 U/L (40-110); Anion Gap 13 mmol/L (10-20); BUN (Urea Nitrogen) 7 mg/dL (9.8-20.1); Bilirubin, Direct 2.7 mg/dL (0.1-0.3); Bilirubin, Total 3.9 mg/dL (0.2-1.2); Calc. Creatinine Clearance 100 mL/min (70-130); Carbon Dioxide 22 mmol/L (22-29); Chloride 106 mmol/L (98-107); Estimated GFR 91; Globulin 2.9 g/dL (2.4-3.5); Glucose 230 mg/dL (70-105); Potassium 3.6 mmol/L (3.5-5.1); Protein, Total 6.6 g/dL (6.0-8.3); Sodium 137 mmol/L (136-145)
[2022-09-22 12:07] LABS: Hypochromia SLIGHT = 6-15 cells (100X) (0-5/hpf); Large Platelets SLIGHT; MDiff Complete? YES; Microcytosis SLIGHT = 6-15 cells (100X) (0-5/hpf); Platelet Count 91 10x3/uL (130-400); Platelet Morphology Comment Appears Decreased; Tear Drops SLIGHT = 2-5 cells (100X) (0-1/hpf)
[2022-09-22 14:05] LABS: Hemoglobin A1c 10.2 % (4.0-6.0)
[2022-09-22] MEDS: Lactated Ringer's 1,000 ML IV SCH (17:03)
[2022-09-22] MEDS: Insulin Glargine 30 UNITS/0.3 ML VIAL SC SCH (20:26)
[2022-09-22] MEDS ORDERED: Enoxaparin Sodium 40 MG/0.4 ML SYRINGE SC SCH (21:00)
[2022-09-23] MEDS: Lactated Ringer's 1,000 ML IV SCH ×4 (04:01→23:34)
[2022-09-23] MEDS: Piperacillin/Tazobactam 3.375 GM in Sodium Chloride 0.9% 100 ML IVPB SCH ×3 (04:01→20:21)
[2022-09-23] MEDS: Acetaminophen 325 MG TAB PO PRN (04:03)
[2022-09-23 06:54] LABS: PTT 32.3 sec (22.9-36.1)
[2022-09-23 07:12] LABS: ALT (SGPT) 45 U/L (8-55); AST (SGOT) 44 U/L (5-34); Albumin 3.5 g/dL (3.5-5.0); Alkaline Phosphatase 265 U/L (40-110); Anion Gap 12 mmol/L (10-20); BUN (Urea Nitrogen) 6 mg/dL (9.8-20.1); Bilirubin, Total 2.3 mg/dL (0.2-1.2); Calc. Creatinine Clearance 100 mL/min (70-130); Calcium 8.7 mg/dL (7.8-10.44); Carbon Dioxide 24 mmol/L (22-29); Chloride 106 mmol/L (98-107); Estimated GFR 91; Globulin 2.8 g/dL (2.4-3.5); Glucose 172 mg/dL (70-105); Iron 21 ug/dL (50-170); Iron Binding Capacity, Total 298 mcg/dL (265-497); Potassium 3.3 mmol/L (3.5-5.1); Protein, Total 6.3 g/dL (6.0-8.3); Sodium 139 mmol/L (136-145)
[2022-09-23] MEDS ORDERED: Bupivacaine/Epinephrine 0.25% 30 ML VIAL ONE ×2 (08:41→08:55)
[2022-09-23] MEDS ORDERED: Iopamidol 30 ML ONE (08:41)
[2022-09-23] MEDS ORDERED: Ioversol 68 % 50 ML VIAL ONE (08:55)
[2022-09-23] MEDS ORDERED: Dexmedetomidine 200 MCG/2 ML VIAL ONE (09:02)
[2022-09-23] MEDS ORDERED: fentaNYL PF 100 MCG/2 ML SYRINGE ONE (09:02)
[2022-09-23] MEDS ORDERED: Ondansetron PF 4 MG/2 ML Vial ONE (09:14)
[2022-09-23] MEDS ORDERED: Dexamethasone 20 MG/5 ML VIAL ONE (09:14)
[2022-09-23] MEDS ORDERED: Rocuronium Bromide 10 MG/ML (10ML VIAL) ONE (09:14)
[2022-09-23] MEDS ORDERED: NEOSTIGMINE 3 MG/3 ML SYR 3 MG/3 ML SYRINGE ONE (09:14)
[2022-09-23] MEDS ORDERED: PROPOFOL 200 MG/20 ML VIAL ONE (09:14)
[2022-09-23] MEDS ORDERED: Promethazine HCl 25 MG/ML VIAL IM PRN (09:45)
[2022-09-23] MEDS ORDERED: Promethazine HCl 25 MG/ML VIAL IVPB PRN (09:45)
[2022-09-23] MEDS ORDERED: Ondansetron HCl/PF 4 MG/2 ML Vial IVP PRN (09:45)
[2022-09-23] MEDS ORDERED: Piperacillin/Tazobactam 3.375 GM VIAL ONE (09:46)
[2022-09-23] MEDS ORDERED: Promethazine HCl 25 MG/ML VIAL ONE (11:27)
[2022-09-23] MEDS ORDERED: traMADol HCl 50 MG TAB PO PRN ×3 (11:47→12:42)
[2022-09-23] MEDS ORDERED: oxyCODONE 5 MG TAB PO PRN ×2 (11:48→11:49)
[2022-09-23] MEDS ORDERED: [UNRECOGNIZED DRUG - REMARK] FS PRN (12:41)
[2022-09-23] MEDS ORDERED: Electrolyte Replacement Protocol 1 EACH FS SCH (12:45)
[2022-09-23] MEDS ORDERED: Electrolyte Replacement Protocol FS PRN (12:45)
[2022-09-23] MEDS: oxyCODONE 5 MG TAB PO PRN ×2 (15:26→22:11)
[2022-09-23] MEDS: HumaLOG 300 UNITS/3 ML VIAL SC PRN (18:14)
[2022-09-23] MEDS: Insulin Glargine 30 UNITS/0.3 ML VIAL SC SCH (20:21)
[2022-09-24] MEDS: oxyCODONE 5 MG TAB PO PRN ×2 (02:39→09:06)
[2022-09-24] MEDS: Piperacillin/Tazobactam 3.375 GM in Sodium Chloride 0.9% 100 ML IVPB SCH ×2 (03:00→11:34)
[2022-09-24 04:38] VITALS: TEMP 98.5
[2022-09-24 04:44] LABS: #Lymphocytes 0.7 thou/uL (1.20-3.40); #Monocytes 0.5 thou/uL (0.11-0.59); #Neutrophils 3.1 thou/uL (1.40-6.50); %Basophils 0.1 % (0.0-1.0); %Eosinophils 0.3 % (0.0-10.0); %Lymphocytes 16.9 % (21.0-51.0); %Monocytes 12.1 % (0.0-10.0); %Neutrophils 70.5 % (42.0-75.0); Hemoglobin 10.9 g/dL (12.0-16.0); Mean Corpuscular HGB CONC 30.8 g/dL (32.0-36.0); Mean Corpuscular Hemoglobin 23.5 pg (27.0-31.0); Mean Corpuscular Volume 76.2 fl (78.0-98.0); Mean Platelet Volume 11.5 fL (7.4-10.4); Platelet Count 120 10x3/uL (130-400); RBC Distribution Width 17.4 % (11.5-14.5); Red Blood Cell (RBC) Count 4.63 mill/uL (4.20-5.40); White Blood Cell (WBC) Count 4.3 10x3/uL (4.8-10.8)
[2022-09-24 04:59] LABS: ALT (SGPT) 40 U/L (8-55); AST (SGOT) 47 U/L (5-34); Albumin 3.7 g/dL (3.5-5.0); Alkaline Phosphatase 292 U/L (40-110); Anion Gap 14 mmol/L (10-20); BUN (Urea Nitrogen) 5 mg/dL (9.8-20.1); Bilirubin, Total 2.5 mg/dL (0.2-1.2); Calc. Creatinine Clearance 87 mL/min (70-130); Calcium 9.1 mg/dL (7.8-10.44); Carbon Dioxide 25 mmol/L (22-29); Chloride 102 mmol/L (98-107); Estimated GFR 77; Globulin 2.9 g/dL (2.4-3.5); Glucose 236 mg/dL (70-105); Protein, Total 6.6 g/dL (6.0-8.3); Sodium 137 mmol/L (136-145)
[2022-09-24] MEDS: HumaLOG 300 UNITS/3 ML VIAL SC PRN ×2 (05:59→11:34)
[2022-09-24] MEDS ORDERED: Enoxaparin Sodium 40 MG/0.4 ML SYRINGE SC SCH (09:00)
[2022-09-24] MEDS: Lactated Ringer's 1,000 ML IV SCH (09:02)
[2022-09-24 12:40] LABS: ANA Symphony (Qualitative) Negative (Negative); ANA Symphony (Quantitative) 0.3 Ratio (< 0.7 Negative); EliA Vaculitis New Method **** NEW METHOD ****; Mitochondrial Ab 0.7 U/mL (<4 Negative); dsDNA IgG Antibody 0.8 IU/mL (<10 Negative)
[2022-09-24 12:56] VITALS: BP 142/82
[2022-09-24 14:38] LABS: Alpha-1-Antitrypsin 187 mg/dL (101-187)
[2022-09-25 12:13] LABS: Smooth Muscle Total ABS 15 Units (0-19)
== END 2022-09-24 14:35 | disposition home or self-care (01) | DRG 418 ==
LOC: SURG B 04:09
PROVIDERS: ADMIT Family Medicine; ATTEND Family Medicine
PROC: 0FT44ZZ Resection of Gallbladder, Percutaneous Endoscopic Approach (ICD-10-PCS; principal; 2022-09-23)
PROC: 0FB04ZX Excision of Liver, Percutaneous Endoscopic Approach, Diagnostic (ICD-10-PCS; 2022-09-23)
PROC: BF532Z0 Other Imaging of Gallbladder and Bile Ducts using Fluorescing Agent, Intraoperative (ICD-10-PCS; 2022-09-23)
DX: K80.00 Calculus of gallbladder with acute cholecystitis without obstruction (principal); D61.818 Other pancytopenia; Z20.822 Contact with and (suspected) exposure to COVID-19; K74.60 Unspecified cirrhosis of liver; G89.29 Other chronic pain; M54.2 Cervicalgia; M54.9 Dorsalgia, unspecified; E03.9 Hypothyroidism, unspecified; E80.6 Other disorders of bilirubin metabolism; D50.9 Iron deficiency anemia, unspecified; I50.9 Heart failure, unspecified; E11.65 Type 2 diabetes mellitus with hyperglycemia; R16.1 Splenomegaly, not elsewhere classified; Z28.21 Immunization not carried out because of patient refusal; Z88.8 Allergy status to other drugs, medicaments and biological substances; Z79.899 Other long term (current) drug therapy; Z79.890 Hormone replacement therapy; Z79.84 Long term (current) use of oral hypoglycemic drugs; Z79.4 Long term (current) use of insulin
CPT/HCPCS: 36415; 36416; 47532; 74181; 76705; 80053; 81256; 82103; 82105; 82247; 82728; 83036; 83516; 83540; 83550; 83690; 85025; 85610; 85730; 86015; 86038; 86225; 86850; 86900; 86901; 88304; 88307; 88313; C1713; C1889; J1100; J1610; J1650; J1815; J2270; J2405; J2543; J2550; J2704; J3490; J7050; J7120; J7643; Q9967; U0002

== ENCOUNTER 2023-09-22 21:48 | Observation (INO) | payer OTHER ==
[2023-09-22] MEDS ORDERED: Lidocaine 1% PF 5 ML VIAL ONE (22:46)
[2023-09-23] MEDS ORDERED: Sodium Chloride 0.9% 100 ML ONE (00:34)
[2023-09-23] MEDS ORDERED: cefTRIAXone (ROCEPHIN) 2 GM VIAL ONE (00:34)
[2023-09-23] MEDS ORDERED: Ondansetron PF 4 MG/2 ML Vial IVP PRN (01:01)
[2023-09-23] MEDS ORDERED: Glucagon 1 MG/ML KIT IM PRN (01:01)
[2023-09-23] MEDS ORDERED: Dextrose 5% in Water 1,000 ML IV PRN (01:01)
[2023-09-23] MEDS ORDERED: Ondansetron ODT 4 MG TAB PO PRN (01:01)
[2023-09-23] MEDS ORDERED: Acetaminophen 325 MG TAB PO PRN (01:01)
[2023-09-23] MEDS ORDERED: Dextrose 50% Abboject 50 ML SYRINGE SLOW IVP PRN (01:01)
[2023-09-23] MEDS ORDERED: HumaLOG 300 UNITS/3 ML VIAL SC PRN (01:01)
[2023-09-23 01:38] VITALS: BMI 29.0
[2023-09-23] MEDS ORDERED: Acetaminophen 325 MG TAB ONE (03:36)
[2023-09-23 03:44] LABS: #Eosinphils 0.1 thou/uL (0.0-0.7); #Monocytes 0.2 thou/uL (0.11-0.59); #Neutrophils 1.4 thou/uL (1.40-6.50); %Basophils 0.8 % (0.0-1.0); %Eosinophils 2.3 % (0.0-10.0); %Lymphocytes 35.3 % (21.0-51.0); %Monocytes 7.5 % (0.0-10.0); %Neutrophils 53.7 % (42.0-75.0); Hematocrit 34.1 % (36.0-47.0); Hemoglobin 11.3 g/dL (12.0-16.0); Mean Corpuscular HGB CONC 33.1 g/dL (32.0-36.0); Mean Corpuscular Hemoglobin 28.9 pg (27.0-31.0); Mean Corpuscular Volume 87.2 fl (78.0-98.0); Mean Platelet Volume 10.1 fL (7.4-10.4); Platelet Count 102 10x3/uL (130-400); RBC Distribution Width 14.6 % (11.5-14.5); Red Blood Cell (RBC) Count 3.91 mill/uL (4.20-5.40); White Blood Cell (WBC) Count 2.7 10x3/uL (4.8-10.8)
[2023-09-23 03:50] LABS: INR-International Normal Ratio 1.1; PTT 26.4 sec (22.9-36.1); Prothrombin Time 14.5 sec (12.0-14.7)
[2023-09-23 04:08] LABS: Anion Gap 15 mmol/L (10-20); BUN (Urea Nitrogen) 8 mg/dL (9.8-20.1); Calc. Creatinine Clearance 89 mL/min (70-130); Calcium 9.1 mg/dL (7.8-10.44); Carbon Dioxide 27 mmol/L (22-29); Chloride 104 mmol/L (98-107); Estimated GFR 79; Glucose 100 mg/dL (70-105); Iron 64 ug/dL (50-170); Iron Binding Capacity, Total 298 mcg/dL (265-497); Potassium 3.5 mmol/L (3.5-5.1); Sodium 142 mmol/L (136-145)
[2023-09-23 04:12] LABS: Iron 65 ug/dL (50-170); Iron Binding Capacity, Total 295 mcg/dL (265-497)
[2023-09-23 04:23] LABS: HBSAg Index 0.24 S/CO (0-0.99); Hep B Surf Ag Non-Reactive S/CO (NonReactive)
[2023-09-23 04:24] LABS: Hep A IgM AB Non-Reactive S/CO (NonReactive); Hep C IgG Ab Non-Reactive S/CO (NonReactive); Hep C Index 0.06 S/CO (0-0.79)
[2023-09-23 04:26] LABS: HBCM Index 0.15 S/CO (0-0.79); Hepatitis B Core IgM Abs Non-Reactive S/CO (NonReactive)
[2023-09-23] MEDS ORDERED: Levothyroxine Sodium 112 MCG TAB ONE (06:02)
[2023-09-23] MEDS: Levothyroxine Sodium 112 MCG TAB PO SCH (06:05)
[2023-09-23 07:19] LABS: Ferritin 29.54 ng/mL (10-291)
[2023-09-23] MEDS ORDERED: Insulin Regular 300 UNITS/3 ML VIAL ONE (08:42)
[2023-09-23] MEDS: HumaLOG 300 UNITS/3 ML VIAL SC PRN ×2 (08:53→17:31)
[2023-09-23] MEDS: glipiZIDE 5 MG TAB PO SCH (08:54)
[2023-09-23] MEDS: metFORMIN 500 MG TAB PO SCH ×2 (08:54→16:42)
[2023-09-23] MEDS ORDERED: Lidocaine 1% PF 5 ML VIAL ONE ×2 (09:26→10:52)
[2023-09-23] MEDS ORDERED: Furosemide 40 MG TAB PO SCH ×2 (10:30→11:00)
[2023-09-23] MEDS ORDERED: Spironolactone 100 MG TAB PO SCH ×2 (10:30→11:00)
[2023-09-23 12:20] LABS: Fluid, Protein 1.1 g/dL (Not Available)
[2023-09-23 12:23] LABS: RBC Count-Automated (BF) 248 /cu.mm; WBC/Nucleated-Auto (BF) 283 /cu.mm
[2023-09-23 12:24] LABS: BF Color Yellow; Body Fluid Source Ascites Body Fluid; Clarity Hazy (Clear); Tube # EDTA
[2023-09-23 12:41] LABS: BF Segmented Neutrophils 4 %; Cell Count Non Hematic 49 %; Eosinophils 1 %; Lymphocytes 46 %
[2023-09-23] MEDS ORDERED: Insulin Glargine 30 UNITS/0.3 ML VIAL SC SCH (21:00)
[2023-09-23] MEDS ORDERED: cefTRIAXone\\ROCEPHIN 1 GM in Sodium Chloride 0.9% 100 ML IVPB SCH (23:00)
[2023-09-24] MEDS ORDERED: cefTRIAXone\\ROCEPHIN 1 GM in Sodium Chloride 0.9% 100 ML IVPB SCH (01:00)
[2023-09-24] MEDS: Levothyroxine Sodium 112 MCG TAB PO SCH (05:45)
[2023-09-24 06:12] LABS: #Eosinphils 0.1 thou/uL (0.0-0.7); #Monocytes 0.3 thou/uL (0.11-0.59); #Neutrophils 1.7 thou/uL (1.40-6.50); %Basophils 0.9 % (0.0-1.0); %Lymphocytes 36.7 % (21.0-51.0); %Monocytes 8.4 % (0.0-10.0); %Neutrophils 50.7 % (42.0-75.0); Hematocrit 35.4 % (36.0-47.0); Hemoglobin 11.6 g/dL (12.0-16.0); Mean Corpuscular HGB CONC 32.8 g/dL (32.0-36.0); Mean Corpuscular Hemoglobin 28.6 pg (27.0-31.0); Mean Corpuscular Volume 87.4 fl (78.0-98.0); Mean Platelet Volume 9.8 fL (7.4-10.4); RBC Distribution Width 14.6 % (11.5-14.5); Red Blood Cell (RBC) Count 4.05 mill/uL (4.20-5.40); White Blood Cell (WBC) Count 3.3 10x3/uL (4.8-10.8)
[2023-09-24 06:25] LABS: Prothrombin Time 14.1 sec (12.0-14.7)
[2023-09-24 06:38] LABS: Anion Gap 12 mmol/L (10-20); BUN (Urea Nitrogen) 7 mg/dL (9.8-20.1); Calc. Creatinine Clearance 84 mL/min (70-130); Calcium 8.9 mg/dL (7.8-10.44); Carbon Dioxide 28 mmol/L (22-29); Chloride 101 mmol/L (98-107); Estimated GFR 74; Glucose 130 mg/dL (70-105); Potassium 3.2 mmol/L (3.5-5.1); Sodium 138 mmol/L (136-145)
[2023-09-24 06:57] LABS: Platelet Count 116 10x3/uL (130-400)
[2023-09-24] MEDS ORDERED: Furosemide 40 MG TAB PO SCH (07:30)
[2023-09-24] MEDS ORDERED: Spironolactone 100 MG TAB PO SCH (08:00)
[2023-09-24] MEDS: metFORMIN 500 MG TAB PO SCH (08:02)
[2023-09-24] MEDS: glipiZIDE 5 MG TAB PO SCH (08:02)
[2023-09-24 08:37] VITALS: BP 110/60; TEMP 98.2
== END 2023-09-24 14:36 | disposition home or self-care (01) ==
LOC: ERS 21:48 → ERHOLD 09-23 01:01 → T4-B 09-23 09:16
PROVIDERS: ADMIT Physician Assistant; ATTEND Hospitalist
PROC: 0W9G3ZX Drainage of Peritoneal Cavity, Percutaneous Approach, Diagnostic (ICD-10-PCS; principal; 2023-09-23)
DX: K74.60 Unspecified cirrhosis of liver (principal); R18.8 Other ascites; K75.81 Nonalcoholic steatohepatitis (NASH); D72.819 Decreased white blood cell count, unspecified; D69.6 Thrombocytopenia, unspecified; E11.9 Type 2 diabetes mellitus without complications; E03.9 Hypothyroidism, unspecified; R16.1 Splenomegaly, not elsewhere classified; Z90.49 Acquired absence of other specified parts of digestive tract; Z88.8 Allergy status to other drugs, medicaments and biological substances; Z90.710 Acquired absence of both cervix and uterus; Z79.890 Hormone replacement therapy; Z79.4 Long term (current) use of insulin; Z79.899 Other long term (current) drug therapy; Z79.84 Long term (current) use of oral hypoglycemic drugs
CPT/HCPCS: 49083; 80048 ×2; 80074; 82042; 82105; 82728; 82962 ×2; 83540; 83550; 83615; 84157; 85025 ×2; 85610 ×2; 85730; 87070; 87205; 89051; 96376; G0378 ×3; 36415; 36416; 85060; 88112; 88305; 99285; J0696; J1815; J3490

== ENCOUNTER 2023-11-07 08:38 | Outpatient (CLI) | payer OTHER | END 2023-11-07 08:39 | disposition home or self-care (01) | LOC: ULT 08:38 | PROVIDERS: ATTEND Internal Medicine Gastroenterology | DX: K74.60 Unspecified cirrhosis of liver (principal); R18.8 Other ascites; K76.6 Portal hypertension | CPT/HCPCS: 76705 ==

== ENCOUNTER 2024-08-25 08:35 | Outpatient (CLI) | payer OTHER ==
[2024-08-25] MEDS ORDERED: Iopamidol 370 76% 100 ML VIAL ONE (10:23)
== END 2024-08-25 08:36 | disposition home or self-care (01) ==
LOC: BICCT 08:35
PROVIDERS: ATTEND Physician Assistant Medical
DX: K74.60 Unspecified cirrhosis of liver (principal); I85.00 Esophageal varices without bleeding; R11.2 Nausea with vomiting, unspecified; R19.7 Diarrhea, unspecified; R18.8 Other ascites; K76.6 Portal hypertension
CPT/HCPCS: 74170; 82565